=== PATIENT | female | born 1955 | race Caucasian/White ===

== ENCOUNTER 2017-01-16 15:16 | Inpatient (IN) | payer OTHER ==
[~2017-01-16] VITALS: Ht 157.5 cm; Wt 66.2 kg
[2017-01-16] MEDS ORDERED: SOD CHLORIDE 0.9% 1,000 ML IV STA (15:50)
[2017-01-16] MEDS ORDERED: ONDANSETRON 4 MG INJ IV STA (15:50)
[2017-01-16] MEDS ORDERED: KETOROLAC 15 MG INJ IV STA (15:50)
[2017-01-16] MEDS ORDERED: NITROGLYCERIN (SL) 0.4 MG TAB SL ONE (16:00)
[2017-01-16] MEDS ORDERED: ASPIRIN 81 MG TAB PO ONE (16:00)
--- NOTE | 2017-01-16 16:22 | RADRPT ---
PROCEDURE: XR Chest. CLINICAL INDICATION: Abdominal pain. TECHNIQUE: Single frontal view. COMPARISON: None. FINDINGS: The lungs are clear. The heart size is normal. There is no pleural effusion. There is no pneumothorax. IMPRESSION: 1. Normal chest radiograph. RPTAT: QQ .Bradford Babcock MD, Date Time Electronically viewed and signed by .Bradford Babcock MD, on 01/16/2017 16:22 .R/
[2017-01-16 16:52] LABS: BASOPHILS % 0.5 % (0.0-2.0); EOSINOPHILS # 0.2 10^3/ul (0.0-0.5); EOSINOPHILS % 2.9 % (0.0-7.0); HEMATOCRIT 36.8 % (37.0-47.0); HEMOGLOBIN 12.5 g/dl (12.0-16.0); LYMPHOCYTES # 2.2 10^3/ul (0.8-2.9); LYMPHOCYTES % 35.7 % (15.0-51.0); MEAN CORPUSCULAR HEMOGLOBIN 28.5 pg (29.0-33.0); MEAN CORPUSCULAR VOLUME 83.8 fl (82.0-101.0); MEAN PLATELET VOLUME 9.2 fl (7.4-10.4); MONOCYTE # 0.5 10^3/ul (0.3-0.9); MONOCYTES % 7.4 % (0.0-11.0); NEUTROPHIL # 3.3 10^3/ul (1.6-7.5); NEUTROPHILS % 53.3 % (39.0-77.0); PLATELET COUNT 247 10^3/UL (140-415); RED BLOOD COUNT 4.39 10^6/ul (4.20-5.40); RED CELL DISTRIBUTION WIDTH 12.8 % (11.5-14.5); WHITE BLOOD COUNT 6.2 10^3/ul (4.8-10.8)
[2017-01-16 17:01] LABS: ADD UMIC YES; UR ASCORBIC ACID NEGATIVE (NEGATIVE); UR BILIRUBIN (Dip) NEGATIVE (NEGATIVE); UR BLOOD (Dip) 2+ mg/dL (NEGATIVE); UR CLARITY SLIGHTLY CLOUDY (CLEAR); UR COLOR YELLOW (YELLOW); UR GLUCOSE (Dip) NEGATIVE (NEGATIVE); UR KETONES (Dip) NEGATIVE (NEGATIVE); UR LEUKOCYTE ESTERASE (Dip) 1+ Leu/ul (NEGATIVE); UR NITRITE (Dip) NEGATIVE (NEGATIVE); UR RBC 62 /HPF (0-5); UR SPECIFIC GRAVITY (Dip) 1.012 (1.003-1.030); UR SQUAMOUS EPITHELIAL CELL FEW /HPF (FEW); UR TOTAL PROTEIN (Dip) 1+ mg/dl (NEGATIVE); UR UROBILINOGEN (Dip) NEGATIVE (NEGATIVE)
[2017-01-16 17:14] LABS: ALANINE AMINOTRANSFERASE 33 IU/L (13-69); ALBUMIN 4.1 g/dl (3.3-4.9); ALBUMIN/GLOBULIN RATIO 1.51; ALKALINE PHOSPHATASE 93 IU/L (42-121); ANION GAP 11 (8-16); ASPARTATE AMINO TRANSFERASE 19 IU/L (15-46); BILIRUBIN,INDIRECT 0.2 mg/dl (0-1.1); BILIRUBIN,TOTAL 0.2 mg/dl (0.2-1.3); BLOOD UREA NITROGEN 16 mg/dl (7-20); CALCIUM 9.2 mg/dl (8.4-10.2); CARBON DIOXIDE 30 mmol/L (21-31); CHLORIDE 105 mmol/L (97-110); CREATININE 0.66 mg/dl (0.44-1.00); GLUCOSE 102 mg/dl (70-220); POTASSIUM 3.7 mmol/L (3.5-5.1); SODIUM 142 mmol/L (135-144); TOTAL PROTEIN 6.8 g/dl (6.1-8.1)
--- NOTE | 2017-01-16 17:17 | ERA ---
ER Documentation Chief Complaint Date/Time DATE: 01/16/17 TIME: 17:15 Chief Complaint BIBA FOR CHEST PAIN FROM THE BACK.FROM MD'S OFFICE HPI 62-year-old woman complains of pressure-like exertional chest pain intermittently for the last few days. She has had similar episodes of pain in the past usually about once a month which are normally relieved with 1 dose of nitroglycerin, she states the discomfort over the last few pains is unrelieved with nitro. She states she has exertional shortness of breath as well usually with walking worse over the last few days. She states about 2 weeks ago she was treated for UTI with 10 days of cephalexin. She denies any dysuria but complains of a headache, she denies fevers or chills, no vomiting or diarrhea, no abdominal pain, no slurred speech, no blurry vision. ROS All systems reviewed and are negative except as per history of present illness. Medications Home Meds Reported Medications Aspirin* (Aspirin* EC) 81 Mg Tablet.dr, 81 MG PO DAILY, TAB 01/16/17 Allergies Allergies: Coded Allergies: morphine (Verified Allergy, Mild, 01/16/17) PMhx/Soc History of CAD and previous PCI with stent placement History of Surgery: No (C SECTION,HYSTERECTOMY,STENT) Hx Cardiac Disorders: Yes (HTN,ANGINA) Hx Psychiatric Problems: No Hx Miscellaneous Medical Probl: No Hx Alcohol Use: No Hx Substance Use: No Hx Tobacco Use: No Smoking Status: Never smoker FmHx Family History: No diabetes Physical Exam Vitals Vital Signs Date Time Temp Pulse Resp B/P Pulse Ox O2 Delivery O2 Flow Rate FiO2 01/16/17 18:03 65 18 167/78 98 Room Air 01/16/17 16:02 Nasal Cannula 2 01/16/17 15:39 98.7 59 18 157/79 98 Physical Exam GENERAL: Well-developed, well-nourished, well-hydrated, in no apparent distress , looks nontoxic in appearance HEENT: Moist mucous membranes, pink conjunctiva, no cervical spine tenderness or step-off deformities, no goiter, no jaundice or icterus, extraocular movements intact without pain. No submandibular induration, and no pharyngeal erythema NEURO: Alert and oriented 3, cranial nerves II through XII intact bilaterally, pupils equal round reactive to light, no focal deficits or facial asymmetry, sensation intact distally Strength 5/5 in upper and lower extremities bilaterally CARDIAC: Regular rate and rhythm, no murmurs rubs or gallops LUNGS: Clear bilaterally no wheezing crackles or stridor ABDOMEN: Soft nontender, no guarding, no rigidity, no rebound, no psoas sign no obturator sign. Normoactive bowel sounds SKIN: Warm and dry to touch, no abrasions, contusions, or hematomas, no lacerations, no ecchymosis, no target lesions, and without ulcers EXTREMITIES: No clubbing cyanosis or edema, calves are bilaterally symmetrical, no Homans sign, no popliteal cord sign. Distal pulses equal and bilateral PSYCH: Normal affect without agitation or irritability Result Diagram: 01/16/17 1640 01/16/17 1640 Results 24 hrs Laboratory Tests Test 01/16/17 16:20 01/16/17 16:40 Urine Color YELLOW Urine Clarity SLIGHTLY CLOUDY Urine pH 7.0 Urine Specific [place] 1.012 Urine Ketones NEGATIVEmg/dL Urine Nitrite NEGATIVEmg/dL Urine Bilirubin NEGATIVEmg/dL Urine Urobilinogen NEGATIVEmg/dL Urine Leukocyte Esterase 1+Ejf/ul Urine Microscopic RBC 62/HPF Urine Microscopic WBC 10/HPF Urine Squamous Epithelial Cells FEW/HPF Urine Hemoglobin 2+mg/dL Urine Glucose NEGATIVEmg/dL Urine Total Protein 1+mg/dl White Blood Count 6.210^3/ul Red Blood Count 4.3910^6/ul Hemoglobin 12.5g/dl Hematocrit 36.8% Mean Corpuscular Volume 83.8fl Mean Corpuscular Hemoglobin 28.5pg Mean Corpuscular Hemoglobin Concent 34.0g/dl Red Cell Distribution Width 12.8% Platelet Count 04164^3/UL Mean Platelet Volume 9.2fl Neutrophils % 53.3% Lymphocytes % 35.7% Monocytes % 7.4% Eosinophils % 2.9% Basophils % 0.5% Nucleated Red Blood Cells % 0.0/100WBC Neutrophils # 3.310^3/ul Lymphocytes # 2.210^3/ul Monocytes # 0.510^3/ul Eosinophils # 0.210^3/ul Basophils # 0.010^3/ul Nucleated Red Blood Cells # 0.010^3/ul Sodium Level 142mmol/L Potassium Level 3.7mmol/L Chloride Level 105mmol/L Carbon Dioxide Level 30mmol/L Anion Gap 11 Blood Urea Nitrogen 16mg/dl Creatinine 0.66mg/dl Glucose Level 102mg/dl Calcium Level 9.2mg/dl Total Bilirubin 0.2mg/dl Direct Bilirubin 0.00mg/dl Indirect Bilirubin 0.2mg/dl Aspartate Amino Transf (AST/SGOT) 19IU/L Alanine Aminotransferase (ALT/SGPT) 33IU/L Alkaline Phosphatase 93IU/L Troponin I < 0.012ng/ml Total Protein 6.8g/dl Albumin 4.1g/dl Globulin 2.70g/dl Albumin/Globulin Ratio 1.51 Lipase 50U/L Current Medications Medications (Trade) Dose Ordered Sig/Su Route PRN Reason Start Time Stop Time Status Last Admin Dose Admin Sodium Chloride (NS) 1,000 ml @ 1,000 mls/hr Q1H STAT IV 01/16/17 15:50 01/16/17 16:49 DC 01/16/17 16:06 Ondansetron HCl (Zofran Inj) 4 mg ONCE STAT IV 01/16/17 15:50 01/16/17 15:52 DC 01/16/17 16:05 Ketorolac Tromethamine (Toradol) 15 mg ONCE STAT IV 01/16/17 15:50 01/16/17 15:53 DC 01/16/17 16:05 Aspirin (Aspirin) 324 mg ONCE ONCE PO 01/16/17 16:00 01/16/17 16:01 DC 01/16/17 16:05 Nitroglycerin 1 tab 1 tab ONCE ONCE SL 01/16/17 16:00 01/16/17 16:01 DC 01/16/17 16:05 Levofloxacin/ Dextrose (Levaquin 750 Mg/ D5W 150 ml (Pmx)) 150 ml @ 100 mls/hr ONCE ONCE IVPB 01/16/17 17:30 01/16/17 18:59 DC 01/16/17 18:00 Procedures/MDM IV line was established patient was placed on media monitor rhythm strip revealed a sinus rhythm at about 60 bpm. Patient was afebrile. EKG performed, read by me: 61 bpm, normal sinus rhythm, normal axis, no acute ST segment changes, narrow QRS complex, with good R-wave progression in precordial leads. One AP view of the chest performed, read by me reveals no acute infiltrates, normal mediastinum, sharp costophrenic and cardiac borders, no air under the diaphragm. Otherwise unremarkable chest x-ray. I administered 1 L normal saline intravenously, Toradol 15 mg IV, Zofran 4 mg IV , aspirin 324 mg p.o. for cardioprotective measures and nitroglycerin 0.4 mg sublingual. CBC was normal, electrolytes unremarkable, liver function tests normal, troponin negative, urine analysis was concerning for infection, despite recent antibiotic use. I treated her here with levofloxacin 750 mg IV 1. Patient will be admitted to telemetry setting for continued medical management and cardiology consultation. Departure Diagnosis: Primary Impression: Chest pain Qualified Code: R07.9 - Chest pain, unspecified type Additional Impressions: UTI (urinary tract infection) Qualified Code: N30.00 - Acute cystitis without hematuria Unstable angina Condition: PEACE Escudero MD Jan 16, 2017 17:17
[2017-01-16] MEDS ORDERED: ASPI-664 PO (17:20)
[2017-01-16 17:30] LABS: TROPONIN-I < 0.012 ng/ml (0.00-0.12)
[2017-01-16] MEDS ORDERED: LEVOFLOXACIN 750MG/D5W (PMX) 150 ML IVPB ONE (17:30)
[2017-01-16] MEDS ORDERED: ISOS60TA PO (20:11)
[2017-01-16] MEDS ORDERED: METO-429 PO (20:13)
[2017-01-16] MEDS ORDERED: AMIT100T2 PO (20:14)
[2017-01-16 20:23] VITALS: TEMP 98.3
[2017-01-16 20:54] VITALS: PULSE 65
[2017-01-16 21:16] VITALS: Ht 157.5 cm; Wt 66.2 kg
[2017-01-16 21:21] VITALS: BP 168/72; PULSE 63; RESP 20
[2017-01-16 21:29] VITALS: BP 173/90; RESP 20
[2017-01-16] MEDS ORDERED: NITROGLYCERIN (SL) 0.4 MG TAB SL PRN (22:00)
[2017-01-16] MEDS ORDERED: ACETAMINOPHEN 325 MG TAB PO PRN (22:00)
[2017-01-16] MEDS: METOPROLOL (XL) 50 MG TAB PO SCH (22:34)
[2017-01-16] MEDS: ENOXAPARIN 40 MG/0.4 ML SYG SC SCH (22:36)
[2017-01-16] MEDS: AMITRIPTYLINE 50 MG TAB PO SCH (23:24)
[2017-01-16 23:55] VITALS: BP 180/74; RESP 20
[2017-01-17] VITALS (9 sets, daily range): BP systolic 120–162; BP diastolic 61–86; PULSE 59–75; RESP 17–20
[2017-01-17 07:38] LABS: BASOPHILS % 0.4 % (0.0-2.0); EOSINOPHILS # 0.2 10^3/ul (0.0-0.5); EOSINOPHILS % 3.4 % (0.0-7.0); HEMATOCRIT 36.8 % (37.0-47.0); HEMOGLOBIN 12.3 g/dl (12.0-16.0); LYMPHOCYTES # 2.3 10^3/ul (0.8-2.9); LYMPHOCYTES % 43.6 % (15.0-51.0); MEAN CORPUSCULAR HEMOGLOBIN 28.1 pg (29.0-33.0); MEAN CORPUSCULAR HGB CONC 33.4 g/dl (32.0-37.0); MEAN CORPUSCULAR VOLUME 84.2 fl (82.0-101.0); MEAN PLATELET VOLUME 9.7 fl (7.4-10.4); MONOCYTE # 0.4 10^3/ul (0.3-0.9); MONOCYTES % 7.7 % (0.0-11.0); NEUTROPHIL # 2.4 10^3/ul (1.6-7.5); NEUTROPHILS % 44.7 % (39.0-77.0); PLATELET COUNT 232 10^3/UL (140-415); RED BLOOD COUNT 4.37 10^6/ul (4.20-5.40); RED CELL DISTRIBUTION WIDTH 12.9 % (11.5-14.5); WHITE BLOOD COUNT 5.3 10^3/ul (4.8-10.8)
--- NOTE | 2017-01-17 07:44 | HP ---
Date/Time of Note Date/Time of Note DATE: 01/17/17 TIME: 07:40 Assessment/Plan VTE Prophylaxis VTE Prophylaxis Intervention: SCD's Assessment/Plan Assessment/Plan 1. Chest pain, rule out ACS -Continue telemetry monitoring -Supplemental oxygen, aspirin, statin, beta-wero, as needed nitro morphine -2D echo and cardiology consult 2. UTI -IV antibiotic and IV fluid -Follow-up culture results 3. History of CAD with stent in 2006 -Continue cardiac medications and aspirin -See #1 4. Hypertension -Continue meds with adjustment as needed 5. Diabetes -Check A1c -Insulin with adjustment as needed HPI/ROS Admit Date/Time Admit Date/Time Jan 16, 2017 at 17:45 Hx of Present Illness This is a 62-year-old female with a history of hypertension, diabetes, CAD status post PCI with placement of stent in 2006 who presented to the emergency department complaining of chest pain. Pain started a few days ago. It substernal, with radiation to the left arm and it described as squeezing and sharp. Denied shortness of breath, nausea, vomiting, fever or chills. In the ER, EKG was no ST-T wave abnormality and the first troponin negative. PMH/Family/Social Social History Smoking Status: Never smoker Exam/Review of Systems Vital Signs Vitals Vital Signs Date Time Temp Pulse Resp B/P Pulse Ox O2 Delivery O2 Flow Rate FiO2 01/17/17 04:05 98.5 60 18 120/61 93 01/17/17 01:20 Room Air 01/16/17 16:02 2 Intake and Output 01/16/17 01/16/17 01/17/17 15:00 23:00 07:00 Intake Total 250 ml Balance 250 ml Labs Result Diagram: 01/17/17 0702 01/16/17 1640 Medications Medications Current Medications Nitroglycerin (Nitroglycerin (Sl Tab) 0.4 Mg) 1 tab Q5M PRN SL ANGINA; Start at 22:00 Acetaminophen (Tylenol Tab) 650 mg Q6H PRN PO PAIN AND OR ELEVATED TEMP Last administered on 01/16/17 23:02; Admin Dose 650 MG; Start 01/16/17 at 22:00 Enoxaparin Sodium (Lovenox) 40 mg DAILY SC Last administered on 01/16/17 22:36 ; Admin Dose 40 MG; Start 01/16/17 at 22:00 Isosorbide Mononitrate (Imdur) 60 mg DAILY PO ; Start 01/17/17 at 09:00 Amitriptyline HCl (Elavil) 50 mg HS PO Last administered on 01/16/17 23:24; Admin Dose 50 MG; Start 01/16/17 at 21:00 Metoprolol Succinate (Toprol Xl) 50 mg BID PO Last administered on 01/16/17 22 :34; Admin Dose 50 MG; Start 01/16/17 at 22:30 AL PINEDO MD Jan 17, 2017 07:44
[2017-01-17 08:20] LABS: ALBUMIN 3.6 g/dl (3.3-4.9); ALBUMIN/GLOBULIN RATIO 1.38; BILIRUBIN,INDIRECT 0.3 mg/dl (0-1.1); BILIRUBIN,TOTAL 0.3 mg/dl (0.2-1.3); CALCIUM 9.3 mg/dl (8.4-10.2); CREATININE 0.66 mg/dl (0.44-1.00); MAGNESIUM 1.7 mg/dl (1.7-2.5); PHOSPHORUS 5.1 mg/dl (2.5-4.9); POTASSIUM 3.5 mmol/L (3.5-5.1); TOTAL PROTEIN 6.2 g/dl (6.1-8.1)
[2017-01-17] MEDS: METOPROLOL (XL) 50 MG TAB PO SCH ×2 (09:39→20:58)
[2017-01-17] MEDS: ISOSORBIDE MONONITRATE(SR)60 MG TAB PO SCH (09:39)
[2017-01-17] MEDS: ENOXAPARIN 40 MG/0.4 ML SYG SC SCH (09:48)
--- NOTE | 2017-01-17 14:12 | CONS ---
Date/Time of Note Date/Time of Note DATE: 01/17/17 TIME: 14:08 Assessment/Plan Assessment/Plan Additional Assessment/Plan Chest pain CAD with history of PCI 2006 Hypertension UTI -Patient with multiple complaints including symptoms of UTI and left-sided body discomfort, worse on the chest and back. She cannot differentiate if her pain is worse with movements or with activity. He does have a known history of coronary artery disease with history of PCI in 2006. Serial cardiac enzymes remain negative, ECG with no significant ischemic abnormalities. Given unclear symptoms and history as well as her past medical history, would proceed with nuclear cardiac perfusion study. Check echocardiogram. Continue aspirin. Consultation Date/Type/Reason Admit Date/Time Jan 16, 2017 at 17:45 Type of Consultation: cv Reason for Consultation Chest pain Hx of Present Illness This is a 62-year-old female with past medical history of coronary artery disease, hypertension, pseudotumor cerebri who presents with chest pain. Symptoms have been going on for 1 week. She feels pain on the whole left side of her body but worse so in her back, neck, arm and chest. She thinks her symptoms worsen with activity or possibly with left arm movements but unclear. She also has been having symptoms of a UTI and has been undergoing treatment. Symptoms have worsened over the past day prior to admission and because of her history of PCI in the past, she became concerned and came to the emergency room for evaluation care. She is not sure if her current symptoms are similar to her symptoms when she had her PCI in 2006. At that time it was 2 chest discomfort and did not suffer "a heart attack". She is currently feeling better. She does complain of occasional sweating with these episodes of chest pain but denies shortness of breath. 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 Exam/Review of Systems Vital Signs Vitals Vital Signs Date Time Temp Pulse Resp B/P Pulse Ox O2 Delivery O2 Flow Rate FiO2 01/17/17 12:13 74 01/17/17 11:45 98.0 18 152/86 95 01/17/17 01:20 Room Air 01/16/17 16:02 2 Intake and Output 01/16/17 01/16/17 01/17/17 15:00 23:00 07:00 Intake Total 250 ml Balance 250 ml Exam No apparent distress Constitutional: alert, obese, oriented Head: normocephalic Respiratory: clear to auscultation, normal air movement Cardiovascular: other (S1-S2 heard), regular rate and rhythm Gastrointestinal: bowel sounds, non-tender, soft Extremities: edema (Trace) Results Result Diagram: 01/17/17 0702 01/17/17 0702 Results 24 hrs Laboratory Tests Test 01/16/17 16:20 01/16/17 16:40 01/16/17 23:19 01/17/17 07:02 Urine Color YELLOW Urine Clarity SLIGHTLY CLOUDY A Urine pH 7.0 Urine Specific [place] 1.012 Urine Ketones NEGATIVE Urine Nitrite NEGATIVE Urine Bilirubin NEGATIVE Urine Urobilinogen NEGATIVE Urine Leukocyte Esterase 1+ H Urine Microscopic RBC 62 H Urine Microscopic WBC 10 H Urine Squamous Epithelial Cells FEW Urine Hemoglobin 2+ H Urine Glucose NEGATIVE Urine Total Protein 1+ H White Blood Count 6.2 5.3 Red Blood Count 4.39 4.37 Hemoglobin 12.5 12.3 Hematocrit 36.8 L 36.8 L Mean Corpuscular Volume 83.8 84.2 Mean Corpuscular Hemoglobin 28.5 L 28.1 L Mean Corpuscular Hemoglobin Concent 34.0 33.4 Red Cell Distribution Width 12.8 12.9 Platelet Count 247 232 Mean Platelet Volume 9.2 9.7 Neutrophils % 53.3 44.7 Lymphocytes % 35.7 43.6 Monocytes % 7.4 7.7 Eosinophils % 2.9 3.4 Basophils % 0.5 0.4 Nucleated Red Blood Cells % 0.0 0.0 Neutrophils # 3.3 2.4 Lymphocytes # 2.2 2.3 Monocytes # 0.5 0.4 Eosinophils # 0.2 0.2 Basophils # 0.0 0.0 Nucleated Red Blood Cells # 0.0 0.0 Sodium Level 142 139 Potassium Level 3.7 3.5 Chloride Level 105 104 Carbon Dioxide Level 30 31 Anion Gap 11 8 Blood Urea Nitrogen 16 19 Creatinine 0.66 0.66 Glucose Level 102 102 Calcium Level 9.2 9.3 Total Bilirubin 0.2 0.3 Direct Bilirubin 0.00 0.00 Indirect Bilirubin 0.2 0.3 Aspartate Amino Transf (AST/SGOT) 19 16 Alanine Aminotransferase (ALT/SGPT) 33 36 Alkaline Phosphatase 93 73 Troponin I < 0.012 < 0.012 < 0.012 Total Protein 6.8 6.2 Albumin 4.1 3.6 Globulin 2.70 2.60 Albumin/Globulin Ratio 1.51 1.38 Lipase 50 Hemoglobin A1c 6.0 H Phosphorus Level 5.1 H Magnesium Level 1.7 Triglycerides Level 285 H Cholesterol Level 219 H LDL Cholesterol, Calculated 119 HDL Cholesterol 43 Cholesterol/HDL Ratio 5.0 Medications Medications Current Medications Nitroglycerin (Nitroglycerin (Sl Tab) 0.4 Mg) 1 tab Q5M PRN SL ANGINA Last administered on 01/17/17 12:15; Admin Dose 1 TAB; Start 01/16/17 at 22:00 Acetaminophen (Tylenol Tab) 650 mg Q6H PRN PO PAIN AND OR ELEVATED TEMP Last administered on 01/16/17 23:02; Admin Dose 650 MG; Start 01/16/17 at 22:00 Enoxaparin Sodium (Lovenox) 40 mg DAILY SC Last administered on 01/17/17 09:48 ; Admin Dose 40 MG; Start 01/16/17 at 22:00 Isosorbide Mononitrate (Imdur) 60 mg DAILY PO Last administered on 01/17/17 09 :39; Admin Dose 60 MG; Start 01/17/17 at 09:00 Amitriptyline HCl (Elavil) 50 mg HS PO Last administered on 01/16/17 23:24; Admin Dose 50 MG; Start 01/16/17 at 21:00 Metoprolol Succinate (Toprol Xl) 50 mg BID PO Last administered on 01/17/17 09 :39; Admin Dose 50 MG; Start 01/16/17 at 22:30 Procedures Procedures ECG demonstrates sinus rhythm at 61 bpm, normal QRS duration, nonspecific ST abnormalities Amaury Little DO Jan 17, 2017 14:12
[2017-01-17] MEDS ORDERED: REGADENOSON 0.4 MG/5 ML SYG ONE (15:32)
--- NOTE | 2017-01-17 16:29 | PN ---
Date/Time of Note Date/Time of Note DATE: 01/17/17 TIME: 16:25 Assessment/Plan VTE Prophylaxis VTE Prophylaxis Intervention: LMWH Assessment/Plan Assessment/Plan 1. Chest pain, stress test per cardiology 2. UTI, on levaquin 3. CAD with stent in 2006, Continue cardiac medications and aspirin 4. Hypertension, Continue meds with adjustment as needed 5. Diabetes, Insulin with adjustment as needed 6. DVT prophylaxis: lovenox Subjective 24 Hr Interval Summary Free Text/Dictation chest pain Exam/Review of Systems Vital Signs Vitals Vital Signs Date Time Temp Pulse Resp B/P Pulse Ox O2 Delivery O2 Flow Rate FiO2 01/17/17 12:13 74 01/17/17 11:45 98.0 18 152/86 95 01/17/17 01:20 Room Air 01/16/17 16:02 2 Intake and Output 01/16/17 01/16/17 01/17/17 15:00 23:00 07:00 Intake Total 250 ml Balance 250 ml Exam Constitutional: alert, oriented, well developed Psych: nl mood/affect, no complaints Head: atraumatic, normocephalic Eyes: EOMI, PERRL, nl conjunctiva, nl lids, nl sclera ENMT: nl external ears & nose, nl lips & teeth, nl nasal mucosa & septum Neck: non-tender, supple Respiratory: clear to auscultation, normal air movement, No congested cough, No crackles/rales, No diminished breath sounds, No intercostal retraction, No labored breathing, No other, No respirations, No tactile fremitus, No wheezing Cardiovascular: nl pulses, regular rate and rhythm, No S3, No S4, No bruits, No diastolic murmur, No edema, No gallop, No irregular rhythm, No jugular venous distention (JVD), No murmurs/extra sounds, No other, No rub, No systolic murmur Gastrointestinal: nl liver, spleen, non-tender, soft, No ascites, No bowel sounds, No distended, No firm, No hepatomegaly, No mass , No other, No rebound or guarding, No splenomegaly, No surgical scars, No tender Musculoskeletal: nl extremities to inspection, No joint tenderness, No muscle tone, No muscle weakness, No nl gait and stance, No other, No range of motion, No spine non-tender, No swelling Extremities: normal pulses, No calf tenderness, No clubbing, No cyanosis, No edema, No other, No palpable cord, No pitting pedal edema, No tenderness Neurological: [employer] II-XII intact, nl mental status, nl speech, nl strength Skin: nl turgor Lymph: nl lymph nodes Results Result Diagram: 01/17/17 0702 01/17/17 0702 Results 24 hrs Laboratory Tests Test 01/16/17 16:40 01/16/17 23:19 01/17/17 07:02 White Blood Count 6.2 5.3 Red Blood Count 4.39 4.37 Hemoglobin 12.5 12.3 Hematocrit 36.8 L 36.8 L Mean Corpuscular Volume 83.8 84.2 Mean Corpuscular Hemoglobin 28.5 L 28.1 L Mean Corpuscular Hemoglobin Concent 34.0 33.4 Red Cell Distribution Width 12.8 12.9 Platelet Count 247 232 Mean Platelet Volume 9.2 9.7 Neutrophils % 53.3 44.7 Lymphocytes % 35.7 43.6 Monocytes % 7.4 7.7 Eosinophils % 2.9 3.4 Basophils % 0.5 0.4 Nucleated Red Blood Cells % 0.0 0.0 Neutrophils # 3.3 2.4 Lymphocytes # 2.2 2.3 Monocytes # 0.5 0.4 Eosinophils # 0.2 0.2 Basophils # 0.0 0.0 Nucleated Red Blood Cells # 0.0 0.0 Sodium Level 142 139 Potassium Level 3.7 3.5 Chloride Level 105 104 Carbon Dioxide Level 30 31 Anion Gap 11 8 Blood Urea Nitrogen 16 19 Creatinine 0.66 0.66 Glucose Level 102 102 Calcium Level 9.2 9.3 Total Bilirubin 0.2 0.3 Direct Bilirubin 0.00 0.00 Indirect Bilirubin 0.2 0.3 Aspartate Amino Transf (AST/SGOT) 19 16 Alanine Aminotransferase (ALT/SGPT) 33 36 Alkaline Phosphatase 93 73 Troponin I < 0.012 < 0.012 < 0.012 Total Protein 6.8 6.2 Albumin 4.1 3.6 Globulin 2.70 2.60 Albumin/Globulin Ratio 1.51 1.38 Lipase 50 Hemoglobin A1c 6.0 H Phosphorus Level 5.1 H Magnesium Level 1.7 Triglycerides Level 285 H Cholesterol Level 219 H LDL Cholesterol, Calculated 119 HDL Cholesterol 43 Cholesterol/HDL Ratio 5.0 Medications Medications Current Medications Nitroglycerin (Nitroglycerin (Sl Tab) 0.4 Mg) 1 tab Q5M PRN SL ANGINA Last administered on 01/17/17 12:15; Admin Dose 1 TAB; Start 01/16/17 at 22:00 Acetaminophen (Tylenol Tab) 650 mg Q6H PRN PO PAIN AND OR ELEVATED TEMP Last administered on 01/16/17 23:02; Admin Dose 650 MG; Start 01/16/17 at 22:00 Enoxaparin Sodium (Lovenox) 40 mg DAILY SC Last administered on 01/17/17 09:48 ; Admin Dose 40 MG; Start 01/16/17 at 22:00 Isosorbide Mononitrate (Imdur) 60 mg DAILY PO Last administered on 01/17/17 09 :39; Admin Dose 60 MG; Start 01/17/17 at 09:00 Amitriptyline HCl (Elavil) 50 mg HS PO Last administered on 01/16/17 23:24; Admin Dose 50 MG; Start 01/16/17 at 21:00 Metoprolol Succinate (Toprol Xl) 50 mg BID PO Last administered on 01/17/17 09 :39; Admin Dose 50 MG; Start 01/16/17 at 22:30 Aspirin (Aspirin) 81 mg DAILY PO ; Start 01/17/17 at 14:30 HOLLY RASHID MD Jan 17, 2017 16:29
[2017-01-17] MEDS: ASPIRIN 81 MG TAB PO SCH (17:21)
--- NOTE | 2017-01-17 20:48 | RADRPT ---
Echocardiogram Report Patient Name: MILTON HITCHCOCK Gender: Female Date: 1955 Study Date: 17-Jan-2017 [employer] Consultant: Tobias [facility] Location: 555[facility]A Ref. Physician: AMAURY LOPEZ Quality: Adequate Procedures: Transthoracic echocardiogram with complete 2D, M-Mode, and doppler examination. Indications: Coronary Artery Disease. 2D/M Mode Doppler Measurement Value Normal Ranges Measurement Value Normal Ranges FS MM 31.0 % AV Peak Yves 1.1 m/sec LVIDd 2D 3.7 3.5 - 5.6 cm AV Peak PG 5.0 mmHg LVIDs 2D 2.6 2.1 - 4.1 cm LVOT Peak Yves 1.0 m/sec LVPWd 2D 1.5 0.6 - 1.1 cm LVOT Peak PG 4.0 mmHg IVSd 2D 1.5 0.6 - 1.1 cm MV E Peak Yves 0.6 m/sec AoR Diam 2D 2.7 2.0 - 3.7 cm MV A Peak Yves 0.9 m/sec EF 2D 60.0 50.0 - 65.0 % MV Decel Time 192 msec LA Dimen 2D 3.9 2.3 - 4.0 cm TR Peak Yves 2.6 m/sec TR Peak PG 26.0 mmHg RVSP 29.0 mmHg Findings Left Ventricle: Normal left ventricular systolic function. Normal left ventricular cavity size. Moderate concentric left ventricular hypertrophy. Ejection fraction is visually estimated at 65 %. Tissue Doppler/Mitral Doppler indices are consistent with impaired relaxation (Stage I diastolic dysfunction). Right Ventricle: Normal right ventricular size. Normal right ventricular systolic function. Left Atrium: There is mild enlargement of left atrium. Right Atrium: The right atrium is normal in size. Mitral Valve: Mild mitral leaflet calcification. Mild mitral annular calcification. Trace mitral regurgitation. Aortic Valve: No hemodynamically significant aortic stenosis by doppler. Aortic cusps appear mildly calcified. Trace aortic valve regurgitation. Tricuspid Valve: Normal appearance of the tricuspid valve. Estimated peak PA systolic pressure 29 mmHg. There is trace tricuspid regurgitation. Pulmonic Valve: Pulmonic valve not well visualized. There is trace pulmonic regurgitation. Pericardium: Normal pericardium with no significant pericardial effusion. Aorta: Normal aortic root. IVC: Normal size and normal respiratory collapse consistent with normal right atrial pressure. Conclusions 1.Normal left ventricular systolic function. Normal left ventricular cavity size. Moderate concentric left ventricular hypertrophy. Ejection fraction is visually estimated at 65 %. Tissue Doppler/Mitral Doppler indices are consistent with impaired relaxation (Stage I diastolic dysfunction). 2.Normal right ventricular size. Normal right ventricular systolic function. 3.There is mild enlargement of left atrium. 4.The right atrium is normal in size. 5.No significant valvular stenosis or regurgitation seen. 6.Normal pericardium with no significant pericardial effusion. Electronically Signed By: Amaury Lopez 17-Jan-2017 20:47:50 -0700 Patient Name: MILTON HITCHCOCK Study Date: 17-Jan-2017 [id number]
[2017-01-17] MEDS: AMITRIPTYLINE 50 MG TAB PO SCH (20:58)
[2017-01-18] VITALS (7 sets, daily range): BP systolic 131–198; BP diastolic 69–91; PULSE 60–73; RESP 17–18
[2017-01-18] MEDS ORDERED: LEVOFLOXACIN 250 MG TAB PO SCH (06:00)
[2017-01-18] MEDS: ASPIRIN 81 MG TAB PO SCH (09:22)
[2017-01-18] MEDS: METOPROLOL (XL) 50 MG TAB PO SCH (09:22)
[2017-01-18] MEDS: ISOSORBIDE MONONITRATE(SR)60 MG TAB PO SCH (09:23)
[2017-01-18] MEDS: ENOXAPARIN 40 MG/0.4 ML SYG SC SCH (09:27)
--- NOTE | 2017-01-18 09:43 | RADRPT ---
PROCEDURE: LEXISCAN MYOCARDIAL PERFUSION STUDY CLINICAL INDICATION: 62 -year-old patient with chest pain. TECHNIQUE: Lexiscan 0.4 mg intravenously separate acquisition, gated myocardial perfusion SPECT us ing 30 mCi intravenously at stress and 10 mCi intravenously at rest was performed using the rest/str ess sequence. Poststress SPECT images were obtained in the supine position. COMPARISON: No prior studies. FINDINGS: Perfusion images reveal no evidence of perfusion defects. Poststress gated SPECT images demonstrate no wall motion abnormalities. IMPRESSION: 1. No evidence of perfusion defects. 2. No wall motion abnormalities. 3. The left ventricle ejection fraction at stress is 70% . RPTAT: HH Physician Martita Date Time Electronically viewed and signed by Physician Martita on 01/18/2017 09:43 /
--- NOTE | 2017-01-18 13:28 | DS ---
Date/Time of Note Date/Time of Note DATE: 01/18/17 TIME: 13:25 Discharge Summary Admission/Discharge Info Admit Date/Time Jan 16, 2017 at 17:45 Discharge Date/Time Patient Condition: Stable Procedures Patient: CORETTA ROSE : 1955 Age: 62 Sex: F MR #: [id number] DOS: 01/17/17 0000 Ordering MD: Amaury Little DO Location: [facility] [place] Room/Bed: [facility] PROCEDURE: LEXISCAN MYOCARDIAL PERFUSION STUDY CLINICAL INDICATION: 62 -year-old patient with chest pain. TECHNIQUE: Lexiscan 0.4 mg intravenously separate acquisition, gated myocardial perfusion SPECT using 30 mCi intravenously at stress and 10 mCi intravenously at rest was performed using the rest/stress sequence. Poststress SPECT images were obtained in the supine position. COMPARISON: No prior studies. FINDINGS: Perfusion images reveal no evidence of perfusion defects. Poststress gated SPECT images demonstrate no wall motion abnormalities. IMPRESSION: 1. No evidence of perfusion defects. 2. No wall motion abnormalities. 3. The left ventricle ejection fraction at stress is 70% . RPTAT: HH Physician Martita Date Time Electronically viewed and signed by Physician Martita on 01/18/2017 09 :43 GC/ CC: Amaury Little DO Hx of Present Illness This is a 62-year-old female with a history of hypertension, diabetes, CAD status post PCI with placement of stent in 2006 who presented to the emergency department complaining of chest pain. Pain started a few days ago. It substernal, with radiation to the left arm and it described as squeezing and sharp. Denied shortness of breath, nausea, vomiting, fever or chills. In the ER, EKG was no ST-T wave abnormality and the first troponin negative. Hospital Course This is a 62-year-old female with past medical history of coronary artery disease, hypertension, pseudotumor cerebri who presents with chest pain. Symptoms have been going on for 1 week. She feels pain on the whole left side of her body but worse so in her back, neck, arm and chest. She thinks her symptoms worsen with activity or possibly with left arm movements but unclear. She also has been having symptoms of a UTI and has been undergoing treatment. Symptoms have worsened over the past day prior to admission and because of her history of PCI in the past, she became concerned and came to the emergency room for evaluation care. She is not sure if her current symptoms are similar to her symptoms when she had her PCI in 2006. At that time it was 2 chest discomfort and did not suffer "a heart attack". She is currently feeling better. She does complain of occasional sweating with these episodes of chest pain but denies shortness of breath. Physical exam is unremarkable. Troponin negative. Echocardiography is unremarkable. Stress thallium test is negative. Patient is chest pain free today. She will follow up with PCP and cardiology outpatient. Home Meds Reported Medications Amitriptyline Hcl* (Amitriptyline Hcl*) Unknown Strength Tablet, 1 TAB PO QHS, # 30 TAB 01/16/17 Metoprolol Tartrate* (Lopressor*) Unknown Strength Tab, 1 TAB PO BID, #60 TAB 01/16/17 Isosorbide Mononitrate* (Isosorbide Mononitrate*) Unknown Strength Tab.er.24h, 0.5 TAB PO DAILY, TAB 01/16/17 Aspirin* (Aspirin* EC) 81 Mg Tablet.dr, 81 MG PO DAILY, TAB 01/16/17 Primary Care Provider Care Physician No Primary Pending Labs Microbiology Date/Time Source Procedure Growth Status 01/17/17 15:00 Clean Catch Urine Urine Culture - Preliminary NO GROWTH AFTER 24 HOURS Resulted HOLLY RASHID MD Jan 18, 2017 13:28
[2017-01-18] MEDS ORDERED: ATOR10TA65 PO (13:30)
[2017-01-18] MEDS ORDERED: LEVO250T35 PO (13:31)
--- NOTE | 2017-01-18 16:25 | EN ---
Date/Time of Note Date/Time of Note DATE: 01/18/17 TIME: 16:22 Event Note Cardiology Cardiology Event Note Eulalia Scan ECG Report 01/17/17 62 y/o femaile with hx of CAD who p/w chest pain Baseline ECG SR @ 66bpm, non-specific ST abnormalities BP 127/90 Lexiscan administered as per protocol Symptoms of palpitations and abdominal pain which resolved No significant ECG changes or arrhythmia Peak heart rate 102 Peak blood pressure 176/99 ECG interpretation: Non-ischemic Amaury Little DO Jan 18, 2017 16:25
[2017-01-18] MEDS ORDERED: MINERAL OIL 30ML CUP PO SCH (22:00)
== END 2017-01-18 16:20 | disposition home or self-care (01) | DRG 313 ==
LOC: E/R 15:16 → MS4 17:45
PROVIDERS: ADMIT Internal Medicine; ATTEND Internal Medicine
DX: R07.9 Chest pain, unspecified (principal); I25.10 Atherosclerotic heart disease of native coronary artery without angina pectoris; I10 Essential (primary) hypertension; N39.0 Urinary tract infection, site not specified; E11.9 Type 2 diabetes mellitus without complications; G93.2 Benign intracranial hypertension; Z79.4 Long term (current) use of insulin; Z95.5 Presence of coronary angioplasty implant and graft
CPT/HCPCS: 36415; 71010; 78452; 80053; 80061; 81001; 83036; 83690; 83735; 84100; 84484; 85025; 87086; 93005; 93017; 93306; 96374; 96375; A9500; A9505; J1650; J1885; J1956; J2405; J2785; J7030